=== PATIENT | male | born 2000 | race Hispanic/Latino ===

== ENCOUNTER 2019-11-01 07:13 | Outpatient (CLI) | payer OTHER ==
--- NOTE | 2019-11-01 15:06 | ULT ---
LEFT KNEE ULTRASOUND: HISTORY: Left knee pain. FINDINGS: Real-time imaging of the area of patient's pain shows an oblong-shaped cystic area measuring 1.3 x 3. 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 Somewhat unusual in a patient of th is age group. Consideration for MRI would be suggested. IMPRESSION: Along the medial posterior aspect of the knee is what appears to be a fluid collection which would be in a location of a Whalen's cyst, somewhat unusual in a patient of this age without some type of unde rlying internal derangement. I would suggest consideration for MRI of the knee for further assessmen t. POS: [facility]
== END 2019-11-01 07:14 | disposition home or self-care (01) ==
LOC: BICULT 07:13
PROVIDERS: ATTEND Family Medicine
DX: M71.22 Synovial cyst of popliteal space [Baker], left knee (principal)
CPT/HCPCS: 76999